=== PATIENT | female | born 1955 | race Caucasian/White ===

== ENCOUNTER 2016-09-22 10:57 | Outpatient (CLI) | payer OTHER ==
--- NOTE | 2016-09-22 11:55 | DIAGNOSTIC IMAGING REPORT ---
PROCEDURE: DEXA BONE DENSITY STUDY CLINICAL INDICATION: SCREENING OF OSTEOPOROSIS COMPARISON: DEXA dated the 12/17/2013 FINDINGS: LUMBAR SPINE: Bone mineral density 0.786 g/cm2, T score -2.4 osteopenia which represents a 6.6% decrease from the previous study LEFT HIP: Bone mineral density 0.845 g/cm2, T score -0.8 normal which represents a 2.7% improvement from the previous study LEFT FEMORAL NECK: Bone mineral density 0.679 g/cm2, T score -1.5 osteopenia which represents a 2.1% decrease from the previous study FRACTURE RISK CALCULATION ( when applicable): 10-year fracture risk of a major osteoporotic fracture 10% and of a hip fracture 1.2% (T score greater or equal to -1.0 to: NORMAL) (T score from -1.1 to -2.4: OSTEOPENIA) (T score ess than or equal to -2.5: OSTEOPOROSIS) IMPRESSION: 1. Osteopenia lumbar spine and femoral neck with 6.6 and 2.1% decreases in bone mineral density from the previous study
== END 2016-09-22 23:00 ==
LOC: XR SRH 10:57
DX: Z13.820 Encounter for screening for osteoporosis (principal); M85.88 Other specified disorders of bone density and structure, other site; M85.852 Other specified disorders of bone density and structure, left thigh